=== PATIENT | female | born 1975 | race Two or more races ===

== ENCOUNTER 2020-04-20 06:00 | Inpatient (IN) | payer OTHER ==
[~2020-04-20] VITALS: Ht 152.4 cm; Wt 65.3 kg
[~2020-04-20 06:00] MED LIST: LOSARTAN-HCTZ1 EAC2 PO
[2020-04-20] MEDS ORDERED: NORETHINDRONE0.35 MG (16:40)
[2020-04-20] MEDS ORDERED: LOSARTAN POTAS100 MG (16:40)
[2020-04-20] MEDS ORDERED: METOPROLOL SUCC25 MG (16:40)
[2020-04-20] MEDS ORDERED: HYDROCHLOROTH12.5 MG (16:40)
[2020-04-23] MEDS ORDERED: COLACE100 MG PO (11:46)
[2020-04-23] MEDS ORDERED: NAPR500T14 PO (11:47)
[2020-04-23] MEDS ORDERED: TANDEM PLUS CA1 EACH PO (11:47)
[2020-04-23] MEDS ORDERED: CODE1TAB37 PO (11:48)
[2020-04-23] MEDS ORDERED: PEPCID AC20 MG PO (11:49)
[2020-04-23] MEDS ORDERED: SIMETHICONE125 M1 PO (11:49)
== END 2020-04-23 12:11 | disposition home or self-care (01) | DRG 742 ==
LOC: CIR.AMB 06:00 → OB/GYN 15:12 → O/R 15:12 → OB/GYN 19:55 → SURG-SUITE 04-21 13:18
PROVIDERS: ADMIT Obstetrics & Gynecology; ATTEND Obstetrics & Gynecology
PROC: 0UB00ZZ Excision of Right Ovary, Open Approach (ICD-10-PCS; 2020-04-20)
PROC: 0DNW0ZZ Release Peritoneum, Open Approach (ICD-10-PCS; 2020-04-20)
PROC: 0UB70ZZ Excision of Bilateral Fallopian Tubes, Open Approach (ICD-10-PCS; 2020-04-20)
PROC: 0UJD4ZZ Inspection of Uterus and Cervix, Percutaneous Endoscopic Approach (ICD-10-PCS; 2020-04-20)
PROC: 0UT90ZZ Resection of Uterus, Open Approach (ICD-10-PCS; principal; 2020-04-20 07:00)
PROC: 30233N1 Transfusion of Nonautologous Red Blood Cells into Peripheral Vein, Percutaneous Approach (ICD-10-PCS; 2020-04-21)
DX: N80.0 Endometriosis of uterus (principal); D62 Acute posthemorrhagic anemia; N73.6 Female pelvic peritoneal adhesions (postinfective); N80.1 Endometriosis of ovary; D25.1 Intramural leiomyoma of uterus; D25.0 Submucous leiomyoma of uterus; D25.2 Subserosal leiomyoma of uterus; Z53.31 Laparoscopic surgical procedure converted to open procedure